=== PATIENT | female | born 1945 | race Caucasian/White ===

== ENCOUNTER 2020-03-25 11:16 | Outpatient (CLI) | payer MEDICARE, MEDICAID, SELFPAY ==
[2020-03-25 11:34] LABS: Basophils Percent Auto 0.5 % (0.2-1.2); Eosinophils Absolute Auto 0.1 K/mm3 (0-0.3); Eosinophils Percent Auto 1.4 % (0-4.4); Hematocrit 38.2 % (37.0-47.0); Hemoglobin 11.9 g/dL (12.0-15.0); Immature Granulocyte Absolute 0.05 K/mm3 (0.00-0.031); Immature Granulocyte Percent A 0.8 % (0-0.5); Lymphocytes Absolute Auto 1.55 K/mm3 (0.9-3.2); Lymphocytes Percent Auto 26.2 % (18.3-44.2); Mean Corpuscular HGB Conc 31.2 g/dl (32-36); Mean Corpuscular Hemoglobin 26.4 pg (26-34); Mean Corpuscular Volume 84.7 fl (80-100); Mean Platelet Volume 10.4 fl (7.4-10.4); Monocytes Absolute Auto 0.5 K/mm3 (0.1-0.6); Neutrophils Absolute Auto 3.7 K/mm3 (1.3-6.7); Neutrophils Percent Auto 62.1 % (45.5-73.1); Platelet Count Result 184 k/mm3 (150-375); Red Blood Count 4.51 M/mm3 (4.2-5.4); Red Cell Distribution Width 14.1 % (11.5-14.5); White Blood Count 5.9 K/mm3 (4.5-10.0)
[2020-03-25 12:25] LABS: Iron 67 ug/dL (37-170)
[2020-03-25 12:34] LABS: Immunoglobulin A 242 mg/dL (70-400); Immunoglobulin G 761 mg/dL (700-1600); Immunoglobulin M 171 mg/dL (40-230)
[2020-03-25 12:37] LABS: Percent Iron Saturation 15 % (20-50)
[2020-03-28 03:45] LABS: Albumin 3.6 g/dL (3.8-4.8); Alpha 1 Globulin 0.3 g/dL (0.2-0.3); Alpha 2 Globulin 0.7 g/dL (0.5-0.9); Beta 1 Globulin 0.5 g/dL (0.4-0.6); Gamma Globulin 0.8 g/dL (0.8-1.7); Protein, Total 6.3 g/dL (6.1-8.1)
[2020-03-30 09:44] LABS: Kappa\\Lambda Light Chains 1.15 (0.26-1.65); Lambda Light Chain 15.9 mg/L (5.7-26.3)
== END 2020-03-25 11:17 | disposition home or self-care (01) ==
LOC: ANHLAB 11:19
PROVIDERS: PCP Family Medicine; Visit Provider Internal Medicine Hematology & Oncology
DX: D64.9 Anemia, unspecified (principal); D72.9 Disorder of white blood cells, unspecified
CPT/HCPCS: 36415; 82607; 82728; 82784; 83540; 83550; 83883; 84155; 84165; 85025; 86334

== ENCOUNTER 2020-10-05 12:13 | Outpatient (CLI) | payer MEDICARE, MEDICAID, SELFPAY ==
--- NOTE | ~2020-10-05 | MR_ITS ---
EXAMINATION: MR lumbar spine wo con DATE: 10/05/2020 13:12 INDICATION: Lumbar radiculopathy. TECHNIQUE: Magnetic resonance imaging (MRI) of the lumbar spine was performed without intravenous con trast. Sequences included sagittal T2-weighted FSE, sagittal STIR FSE, sagittal T1-weighted FSE, and axial T2-weighted FSE. COMPARISON: None FINDINGS: There is 6 degrees dextrocurvature of lumbar spine. There is 5 mm retrolisthesis of T12 on L1. There is 8 mm anterolisthesis of L4 on L5. Vertebral body heights are normal. There is interbody fusion at L4-L5. There is severely decreased disc height from T10-T11 through T12-L1, mildly decrease d disc height at L2-L3, and moderately decreased disc height at L3-L4. The distal spinal cord signal intensity is normal. The conus medullaris is at T12-L1. The following disc levels are specifically di scussed: T12-L1: The disc is bulging with superimposed right central extrusion. There is mild bilateral facet joint osteoarthritis. There is moderate right and mild left neural foraminal stenosis. There is mild central canal stenosis. L1-L2: The disc is bulging. There is moderate bilateral facet joint osteoarthritis. There is mild yossi ateral neural foraminal stenosis. There is mild central canal stenosis. L2-L3: The disc is bulging. There is severe bilateral facet joint osteoarthritis. There is mild bilat eral neural foraminal stenosis. There is moderate central canal stenosis. L3-L4: The disc is bulging. There is severe bilateral facet joint osteoarthritis. There is mild right and moderate left neural foraminal stenosis. There is moderate central canal stenosis. L4-L5: There is severe bilateral facet joint osteoarthritis. There is moderate right and mild left ne ural foraminal stenosis. There is severe central canal stenosis. L5-S1: The disc is bulging. There is severe bilateral facet joint osteoarthritis. There is mild bilat eral neural foraminal stenosis. There is mild central canal stenosis. IMPRESSION: 1. Severe lumbar and lower thoracic spondylosis. 2. Interbody fusion at L4-L5. Reviewed, dictated and finalized at location A. SPECIALIST
== END 2020-10-05 12:14 | disposition home or self-care (01) ==
LOC: ANHIMG 12:26
PROVIDERS: PCP Family Medicine; Visit Provider Nurse Practitioner Adult Health
DX: M47.26 Other spondylosis with radiculopathy, lumbar region (principal); M47.894 Other spondylosis, thoracic region; Z98.1 Arthrodesis status
CPT/HCPCS: 72148

== ENCOUNTER 2020-10-14 12:19 | Outpatient (CLI) | payer MEDICARE, MEDICAID, SELFPAY ==
--- NOTE | ~2020-10-14 | MR_ITS ---
EXAMINATION: MR thoracic spine wo con DATE: 10/14/2020 13:36 INDICATION: Thoracic back pain. TECHNIQUE: Magnetic resonance imaging (MRI) of the thoracic spine was performed without intravenous c ontrast. Sagittal localizer T1-weighted FSE of the cervical spine was obtained. Thoracic spine sequen loan included sagittal T2-weighted FSE, sagittal T1-weighted FSE, sagittal STIR FSE, and axial T2-weig hted FSE. COMPARISON: Chest 2 views 10/27/2016 FINDINGS: There is 5 degrees dextrocurvature of thoracic spine. There is 4 mm retrolisthesis of T12 o n L1. There is mild chronic anterior wedging of T6 and T7 vertebral bodies. There is severely decreas ed disc height at T6-T7 and T12-L1 and moderately decreased disc height at T10-T11 and T11-T12. There is mildly decreased disc height at multiple levels. There is multilevel facet joint osteoarthritis, severe at many levels. There is mild neural foraminal stenosis at most levels bilaterally. The discs are bulging at all levels from T1-T2 through T12-L1. There is moderate central canal stenosis at T3-T 4 and T12-L1. There is mild central canal stenosis at all other thoracic levels IMPRESSION: 1. Severe thoracic spondylosis. Reviewed, dictated and finalized at location B. [employer]
== END 2020-10-14 12:20 | disposition home or self-care (01) ==
PROVIDERS: PCP Family Medicine; Visit Provider Nurse Practitioner Adult Health
DX: M47.894 Other spondylosis, thoracic region (principal)
CPT/HCPCS: 72146